=== PATIENT | female | born 1960 | race Caucasian/White ===

== ENCOUNTER → 2024-04-27 08:41 | Outpatient (CLI) | payer OTHER, SELFPAY ==
--- NOTE | 2024-04-27 | DI.MRI.S_ITS ---
BREAST MRI OF BOTH BREASTS: 04/27/2024 CLINICAL: Right breast cancer. PROCEDURE: MR BREAST BI WO/W CON INDICATIONS: Lobular carcinoma of breast TECHNIQUE: The patient was placed prone in a dedicated breast imaging coil. Precontrast axial STIR and 3D FLASH without fat saturation sequences were obtained. Both before and after bolus injection of contrast, sequential 1-minute axial 3D FLASH with fat saturation sequences for 3 time points, with subtraction images and maximum intensity projections (MIP's) generated. Delayed sagittal FLASH images with fat saturation were also obtained. Computer-aided detection, including computer algorithm analysis of MRI image data for lesion detection and characterization, pharmacokinetic analysis, with further physician review for interpretation, was performed. COMPARISON: Outside imaging core biopsy 04/19/2024, diagnostic mammogram and ultrasound 03/25/2024 FINDINGS: Image quality: Diagnostic. There is minimal background parenchymal enhancement. There is scattered fibroglandular tissue. Right breast: At the 6 o'clock position of the right breast anterior depth, there is a irregular mass with irregular margins measuring 9 x 6 x 6 millimeters, corresponding to biopsy-proven malignancy. A clip is seen. No other suspicious mass, non-mass enhancement, or focus. Left breast: No suspicious mass, non-mass enhancement, or focus. Miscellaneous: No suspicious lymphadenopathy by size criteria within the field of view. No significant findings in the partially visualized anterior mediastinum or upper abdomen. IMPRESSION: KNOWN BIOPSY PROVEN MALIGNANCY Biopsy-proven malignancy at the 6 o'clock position of the right breast anterior depth with a biopsy clip. Size is similar compared to sonographic measurement. No other suspicious findings in either breast. No lymphadenopathy by size criteria within the field of view. BIRADS 6 This exam was interpreted at Station ID: [id number]. Electronically Signed By: Freeman Aguayo M.D. lc/:04/27/2024 12:30:37 ACR BI-RADS Category 6: Known biopsy proven malignancy [id number]
== END ==
PROVIDERS: PCP Physician Assistant; Referring Provider Physician Assistant; Visit Provider Physician Assistant
DX: C50.811 Malignant neoplasm of overlapping sites of right female breast (principal)
CPT/HCPCS: 77049; A9579